=== PATIENT | male | born 1945 | race Caucasian/White ===

== ENCOUNTER 2017-08-11 09:08 | Day surgery (SDC) | payer MEDICARE ==
[2017-08-11 09:41] VITALS: BMI 33.3
[2017-08-11] MEDS ORDERED: Lactated Ringer's 1,000 ML IV ONE (10:30)
[2017-08-11] MEDS ORDERED: Propofol 10 mg/ml Inj (20 ML) ONE (10:35)
--- NOTE | 2017-08-11 10:41 | CP.SDSHP ---
Same Day Surgery H & P - History Proposed Procedure: colonscopy Pre-Op Diagnosis: SEE NOTES - Previous Medical/Surgical History Endocrine/Metabolic: Diabetes, Other Neuro: Backaches Misc: Other Pain: 4.Moderate Pain - Allergies Allergies: Allergies No Known Allergies Allergy (Verified 06/28/14 13:32) - Physical Exam General Appearance: N Vital Signs: Vital Signs 08/11/17 09:52 Temperature 97.1 F L Pulse Rate 80 Respiratory 16 Rate Blood Pressure 122/76 O2 Sat by Pulse 97 Oximetry Mental Status: Alert & Oriented x3 Neuro: WNL Heart: Other Lungs: WNL GI: Other - {Optional Preform as Required} Breast: WNL Abdomen: Other Rectal: Other Integument: WNL : WNL Ortho: Other ENT: WNL - Impression Pt. Evaluated Today:Candidate for Anesthesia & Procedure: Yes - Date & Time Time: 10:41 Short Stay Discharge - Short Stay Discharge Admitting Diagnosis/Reason for Visit: HEMORRHAGE OF ANUS AND RECTUM Disposition: HOME/ ROUTINE
[2017-08-11] MEDS ORDERED: Belladonna-Phenobarbital PO ONE (11:15)
[2017-08-11 12:30] VITALS: BP 105/57; PULSE 73; RESP 17; TEMP 98.1; O2SAT 98
== END 2017-08-11 12:00 | disposition home or self-care (01) ==
LOC: C.ENDO 09:08
PROVIDERS: ATTEND Specialist
DX: K62.5 Hemorrhage of anus and rectum (principal); K64.8 Other hemorrhoids; K57.30 Diverticulosis of large intestine without perforation or abscess without bleeding
CPT/HCPCS: 45380; 82948; 88305; J2704; J7120

== ENCOUNTER 2017-08-13 07:23 | Emergency (ER) | payer MEDICARE ==
[2017-08-13 07:24] VITALS: BMI 33.3
[2017-08-13 07:29] VITALS: TEMP 97.7
--- NOTE | 2017-08-13 07:38 | C.PDOC ---
History Of Present Illness 72M c/o low back pain and abdominal pain that started around 3am today. he has a hx of back pain and "disc problems" for which he takes tramadol and this usually helps but today it did not. he had a c scope 2 days ago, he tells me it was routine. he denies f/c, n/v/d, prblems w urination, numbness, weakness. psh gallbladder. son helped provide hx. Time Seen by Provider: 08/13/17 07:35 Chief Complaint (Nursing): Abdominal Pain Past Medical History Vital Signs: Last Vital Signs Temp 97.7 F 08/13/17 13:00 Pulse 98 H 08/13/17 13:00 Resp 18 08/13/17 13:00 BP 113/74 08/13/17 13:00 Pulse Ox 97 08/13/17 13:00 - Medical History PMH: Arthritis, Hypercholesterolemia Surgical History: Cholecystectomy Family History: States: Other Other Family History: nc - Social History Hx Tobacco Use: No Hx Alcohol Use: No Hx Substance Use: No Review Of Systems Except As Marked, All Systems Reviewed And Found Negative. Constitutional: Negative for: Fever, Chills Cardiovascular: Negative for: Chest Pain, Edema Respiratory: Negative for: Cough, Shortness of Breath Gastrointestinal: Positive for: Abdominal Pain. Negative for: Nausea, Vomiting , Diarrhea Genitourinary: Negative for: Dysuria, Incontinence Musculoskeletal: Positive for: Back Pain Neurological: Negative for: Weakness, Numbness Physical Exam - Physical Exam Appears: Well, Non-toxic Skin: Warm, Dry Head: Atraumatic Eye(s): bilateral: PERRL Nose: No Epistaxis Oral Mucosa: Moist Cardiovascular: Rhythm Regular Respiratory: No Decreased Breath Sounds, No Accessory Muscle Use, No Rales, No Rhonchi, No Wheezing Gastrointestinal/Abdominal: Soft, No Tenderness, No Distention, No Guarding, No Rebound Back: Other (diffuse ttp over lumbar region of back) Extremity: No Swelling Pulses: Left Radial: Normal, Right Radial: Normal, Left Dorsalis Pedis: Normal, Right Dorsalis Pedis: Normal Neurological/Psych: Oriented x3, Normal Motor, Normal Sensation, Other (no focal deficits) ED Course And Treatment - Laboratory Results Result Diagrams: 08/13/17 08:03 08/13/17 08:03 O2 Sat by Pulse Oximetry: 100 Medical Decision Making Medical Decision Making: ECG - nsr 72 1st deg avb, no acute ischemia 1210pm disc results w the pt and his son and need for f/u for incidental findings. he is feeling better and comfortable w dc. follow up and return prec advised. CT - Abd & Pelvis PROCEDURE: CT abdomen and pelvis dated 08/13/2017 HISTORY: Abdominal pain and low back pain COMPARISON: None. TECHNIQUE: Contiguous axial images of the abdomen and pelvis performed following the intravenous injection of approximately 100 cc Visipaque 320 contrast material N. Coronal and Sagittal reformats generated. Radiation dose: Total exam DLP = 884.44 mGy-cm. This CT exam was performed using one or more of the following dose reduction techniques: Automated exposure control, adjustment of the mA and/or kV according to patient size, and/or use of iterative reconstruction technique. FINDINGS: LOWER THORAX: Mild bibasilar atelectasis and or scarring. No effusion or basilar pneumothorax. Heart size is borderline/ mildly enlarged. No significant pericardial effusion. There appears to be a tiny hiatal hernia. LIVER: Liver is enlarged measuring approximately 19 cm in CC dimension. Mild fatty hepatic infiltration. Portal and splenic veins are opacified. GALLBLADDER AND BILE DUCTS: Gallbladder is physiologically distended. There is a curvilinear radiopaque density apparently of along the gallbladder surface or within the lumen near the gallbladder fundus that could represent calcification within the wall of the gallbladder or along the septation. Rule out porcelain gallbladder. Note that porcelain gallbladder has an increased incidence of transformation into gallbladder adenocarcinoma. PANCREAS: Pancreas is atrophic and fatty replaced. Spleen Unremarkable. No splenomegaly. ADRENALS: No adrenal lesions. KIDNEYS AND URETERS: Kidneys exhibit relatively symmetric size. Prominent bilateral extrarenal pelves. No evidence of nephrolithiasis or hydronephrosis. BLADDER: The urinary bladder is incompletely distended which may account for slight thick -walled appearance. Muscular hypertrophy may contribute. Cystitis would be less likely in a male patient though not completely excluded. REPRODUCTIVE: The prostate is mildly enlarged measuring 5.5 cm likely due to BPH however correlation with PSA recommended to exclude prostatic carcinoma. . Scattered prostatic calcifications are present. APPENDIX: Normal-appearing appendix BOWEL: Evaluation of the bowel is somewhat limited due to the lack of oral contrast material. Stomach is only partially distended which may account for slight thick-walled appearance. Gastritis not excluded. Visualized loops of small bowel exhibit normal contour and caliber. No evidence of acute mechanical small bowel obstruction. There is a large amount of stool seen within the cecum and transverse colon consistent with fecal retention/constipation. PERITONEUM: Unremarkable. No fluid collection. No free air. Small fat containing umbilical hernia. . Small fat containing bilateral inguinal hernias right larger than left LYMPH NODES: Unremarkable. No enlarged lymph nodes. VASCULATURE: No evidence of abdominal aortic aneurysm. Partially calcified atherosclerotic plaque seen along the abdominal aorta and iliac arteries BONES: Multilevel degenerative spondylosis of the lower thoracic and lumbar spine. OTHER FINDINGS: None. IMPRESSION: Hepatomegaly. Mild fatty hepatic infiltration. Findings consistent with constipation. Curvilinear calcified appearing density along the region of fundus of the gallbladder; rule out porcelain gallbladder which carries a increased incidence of transformation to gallbladder carcinoma. Enlarged prostate gland likely due to BPH however correlation with PSA recommended to exclude prostatic carcinoma. Disposition - Disposition Referrals: Iliana Chavez MD [Staff Provider] - Disposition: HOME/ ROUTINE Disposition Time: 12:14 Condition: IMPROVED Additional Instructions: Please follow up with your doctor on Tuesday. Return to the ER for any worsening symptoms or for any other concerns. Prescriptions: Cyclobenzaprine [Cyclobenzaprine HCl] 10 mg PO TID PRN #20 tab PRN Reason: Pain, Severe (8-10) Naproxen [Naprosyn] 500 mg PO Q12H PRN #10 tablet PRN Reason: Pain, Moderate (4-7) Instructions: Constipation (ED), High Fiber Diet (ED), Abdominal Pain (ED), Back Pain (ED) Forms: General Discharge Instructions, [facility] (Kyrgyz) - Clinical Impression Clinical Impression: Abdominal pain, Back pain
[2017-08-13] MEDS ORDERED: Morphine 4 MG/ML VIAL ONE ×2 (08:04→08:59)
[2017-08-13 08:07] LABS: BASO % 0.7 % (0.0-2.0); EOS # 0.4 K/uL (0.0-0.7); EOS % 5.4 % (0.0-4.0); HEMATOCRIT 45.7 % (35.0-51.0); LYMPH # 1.9 K/uL (1.0-4.3); LYMPH % 28.4 % (20.0-40.0); MEAN CELL VOLUME 88.9 fL (80.0-94.0); MEAN CORPUSCULAR HEMOGLOBIN 30.8 pg (27.0-31.0); MEAN CORPUSCULAR HGB CONC 34.7 g/dL (33.0-37.0); MEAN PLATELET VOLUME 8.9 fL (7.2-11.7); MONO # 0.6 K/uL (0.0-0.8); MONO % 8.5 % (0.0-10.0); NRBC % 0.2 % (0.0-2.0); RED CELL DISTRIBUTION WIDTH 13.5 % (11.5-14.5); WHITE BLOOD COUNT 6.8 K/uL (4.8-10.8)
[2017-08-13 08:21] LABS: CHLORIDE 98 mmol/L (98-107); SODIUM 140 mmol/L (132-148)
[2017-08-13 08:22] LABS: POTASSIUM 3.9 mmol/L (3.6-5.2)
[2017-08-13 08:23] LABS: VENOUS BLOOD GAS BASE EXCESS 2.8 mmol/L (0.0-2.0); VENOUS BLOOD GAS PCO2 59 mmHg (40-60); VENOUS BLOOD PH 7.32 (7.32-7.43)
[2017-08-13 08:24] LABS: ALB/GLOB RATIO 1.2 (1.0-2.1); ALKALINE PHOSPHATASE 68 U/L (38-126); ALT/SGPT 22 U/L (21-72); AST/SGOT 27 U/L (17-59); BILIRUBIN,TOTAL 0.8 mg/dL (0.2-1.3); BLOOD UREA NITROGEN 17 mg/dL (9-20); CALCIUM 8.7 mg/dl (8.6-10.4); CARBON DIOXIDE 26 mmol/L (22-30); GFR AFRICAN-AMERICAN > 60; GLUCOSE,RANDOM 111 mg/dL (75-110); TOTAL PROTEIN 7.5 g/dL (6.3-8.3)
[2017-08-13 08:43] LABS: URINE BILIRUBIN NEGATIVE (NEGATIVE); URINE BLOOD NEGATIVE (NEGATIVE); URINE COLOR Yellow (YELLOW); URINE GLUCOSE (UA) NORMAL (Normal); URINE KETONE NEGATIVE (NEGATIVE); URINE LEUKOCYTE ESTERASE NEG Leu/uL (Negative); URINE PROTEIN NEGATIVE (NEGATIVE); URINE UROBILINOGEN NORMAL mg/dL (0.2-1.0)
[2017-08-13 08:49] LABS: RBC URINE < 1 /hpf (0-3); WBC URINE < 1 /hpf (0-5)
[2017-08-13] MEDS ORDERED: Iodixanol 320 MG/ML 100 ML BOTTLE IV ONE (09:10)
[2017-08-13 10:20] VITALS: RESP 18
--- NOTE | 2017-08-13 10:45 | CT ---
PROCEDURE: CT abdomen and pelvis dated 08/13/2017 HISTORY: Abdominal pain and low back pain COMPARISON: None. TECHNIQUE: Contiguous axial images of the abdomen and pelvis performed following the intravenous injection of approximately 100 cc Visipaque 320 contrast material N. Coronal and Sagittal reformats generated. Radiation dose: Total exam DLP = 884.44 mGy-cm. This CT exam was performed using one or more of the following dose reduction techniques: Automated exposure control, adjustment of the mA and/or kV according to patient size, and/or use of iterative reconstruction technique. FINDINGS: LOWER THORAX: Mild bibasilar atelectasis and or scarring. No effusion or basilar pneumothorax. Heart size is borderline/ mildly enlarged. No significant pericardial effusion. There appears to be a tiny hiatal hernia. LIVER: Liver is enlarged measuring approximately 19 cm in CC dimension. Mild fatty hepatic infiltration. Portal and splenic veins are opacified. GALLBLADDER AND BILE DUCTS: Gallbladder is physiologically distended. There is a curvilinear radiopaque density apparently of along the gallbladder surface or within the lumen near the gallbladder fundus that could represent calcification within the wall of the gallbladder or along the septation. Rule out porcelain gallbladder. Note that porcelain gallbladder has an increased incidence of transformation into gallbladder adenocarcinoma. PANCREAS: Pancreas is atrophic and fatty replaced. Spleen Unremarkable. No splenomegaly. ADRENALS: No adrenal lesions. KIDNEYS AND URETERS: Kidneys exhibit relatively symmetric size. Prominent bilateral extrarenal pelves. No evidence of nephrolithiasis or hydronephrosis. BLADDER: The urinary bladder is incompletely distended which may account for slight thick-walled appearance. Muscular hypertrophy may contribute. Cystitis would be less likely in a male patient though not completely excluded. REPRODUCTIVE: The prostate is mildly enlarged measuring 5.5 cm likely due to BPH however correlation with PSA recommended to exclude prostatic carcinoma. . Scattered prostatic calcifications are present. APPENDIX: Normal-appearing appendix BOWEL: Evaluation of the bowel is somewhat limited due to the lack of oral contrast material. Stomach is only partially distended which may account for slight thick-walled appearance. Gastritis not excluded. Visualized loops of small bowel exhibit normal contour and caliber. No evidence of acute mechanical small bowel obstruction. There is a large amount of stool seen within the cecum and transverse colon consistent with fecal retention/constipation. PERITONEUM: Unremarkable. No fluid collection. No free air. Small fat containing umbilical hernia. . Small fat containing bilateral inguinal hernias right larger than left LYMPH NODES: Unremarkable. No enlarged lymph nodes. VASCULATURE: No evidence of abdominal aortic aneurysm. Partially calcified atherosclerotic plaque seen along the abdominal aorta and iliac arteries BONES: Multilevel degenerative spondylosis of the lower thoracic and lumbar spine. OTHER FINDINGS: None. IMPRESSION: Hepatomegaly. Mild fatty hepatic infiltration. Findings consistent with constipation. Curvilinear calcified appearing density along the region of fundus of the gallbladder; rule out porcelain gallbladder which carries a increased incidence of transformation to gallbladder carcinoma. Enlarged prostate gland likely due to BPH however correlation with PSA recommended to exclude prostatic carcinoma.
[2017-08-13 13:01] VITALS: BP 113/74; PULSE 98
[2017-08-14 08:38] VITALS: O2SAT 100
--- NOTE | 2017-08-16 13:57 | CARD ---
APPROVED REPORT EKG Measurement Heart [id number] <Conclusion> Sinus rhythm with 1st degree AV block Inferior infarct, age undetermined Abnormal ECG
== END 2017-08-13 13:07 | disposition home or self-care (01) ==
LOC: C.ER 07:23
DX: M54.5 Low back pain (principal); R10.9 Unspecified abdominal pain
CPT/HCPCS: 74177; 80053; 81001; 82803; 83690; 84484; 85025; 93005; 96374; 96376; 99285; J2270; Q9967